=== PATIENT | female | born 2000 | race Caucasian/White ===

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

== ENCOUNTER → 2018-01-13 | Day surgery (SDC) | payer BC ==
[2017-12-27 13:55] VITALS: Ht 167 cm; Wt 59.1 kg
[~2018-01-13] VITALS: Ht 167 cm; Wt 59.1 kg
[~2018-01-13] MED LIST changes: +ATROPINE SULFATE 0.1 MG/ML 5ML SYR IV PRN; +BCPILLS PO; +BUPIVACAINE/EPINEPHRINE 0.5% MPF 1:200,000 30 ML VIAL ONE; +CEFAZOLIN 1000MG IV PUSH 7.5 ML IV SCH; +CEFAZOLIN SOD 1 GM VIAL ONE; +CETI10TA84 PO; +CHECK SCOPOLAMINE PATCH PLACEMENT SCH; -CHOL1000 PO; +CHOL20009 PO; +DEXAMETHASONE SOD INJ 4 MG/ML VIAL ONE; +EpHEDrine SULFATE 50MG/5ML SYR ONE; +EpHEDrine SULFATE INJ 50 MG/ML AMP IV PRN; +FENTANYL CITRATE INJ 50 MCG/1 ML 2 ML VIAL ONE; +HYDROmorphone INJ 0.5 MG/0.5 ML SYR IV PRN; +KETOROLAC TROMETHAMINE 30 MG/ML VIAL ONE; +LACTATED RINGER'S 1000ML 1,000 ML IV SCH; +LIDOCAINE HCL 1% 20 ML VIAL ONE; +LIDOCAINE HCL 2% 2 ML VIAL (20MG/ML) ONE; -METO25TA3 PO; +METO25TA4 PO; +MIDAZOLAM HCL 1 MG/ML 2ML VIAL ONE; +MoRPHine SULFATE 2 MG/ML CARP IV PRN; +MoRPHine SULFATE 4 MG/ML 1 ML CARP\\VIAL IV PRN; +ONDANSETRON INJ 2 MG/ML 2 ML VIAL IV PRN; +ONDANSETRON INJ 2 MG/ML 2 ML VIAL ONE; +OXYCODONE/ACETAMINOPHEN 5-325 TAB PO PRN; +PROMETHAZINE HCL INJ 12.5 MG in SODIUM CHLORIDE 0.9% 50ML 50 ML IV PRN; +PROMETHAZINE HCL INJ 25 MG/ML 1 ML VIAL ONE; +PROPOFOL IV EMULSION 10 MG/ML 20 ML VIAL IV ONE; +SCOPOLAMINE 1.5 MG TDSY TD ONE; +SCOPOLAMINE 1.5 MG TDSY TD SCH; +ZNT/150 PO
--- NOTE | 2018-01-13 07:56 | History & Physical Bridge - SC ---
H&P Re-Evaluation Bridge Note: I have examined the patient, reviewed the History & Physical and in the interval since the performance of the History & Physical I have noted the following changes of clinical significance: No changes noted
--- NOTE | 2018-01-13 10:36 | [facility] Post Operative Brief Note ---
Immediate Operative Summary Operative Date Jan 13, 2018. Pre-Operative Diagnosis Left Exertional Compartment Sydrome Post-Operative Diagnosis Same Procedure(s) Performed Left Lower Leg Four Compartment Release Surgeon Dr. Lowe [employer] Consultant Surgeon(s) Dr. Goncalves, Fellow Estimated Blood Loss 7ML Findings Consistent with Post-Op Diagnosis Fluids (cc crystalloids) 1500 Specimens None Drains None Anesthesia Type General Complication(s) none Disposition Disposition: Recovery Room / PACU (Stable)
--- NOTE | 2018-01-13 10:39 | Discharge Instructions-SurgCtr ---
Discharge Instructions Date of Service Jan 13, 2018. Visit Reason for Visit: Left Exertional Comparment Syndrome Discharge Discharge Diagnosis / Problem: Status post 4-compartment release Left lower leg Discharge Goals Goal(s): Decrease discomfort, Improve function, Increase independence Activity Recommendations Activity Limitations: per Instructions/Follow-up section May Resume Sexual Activity: when tolerated Shower/Bathe: may shower/bathe in 3 days Driving or Machine Use: Not while on Narcotics Weightbearing Status: Left weightbearing (as tolerated) Anesthesia . Post Anesthesia Instructions: If you have had General Anesthesia or IV Sedation: * Do not drive today. * Resume driving when surgeon permits. * Do not make important decisions or sign legal documents today. * Call surgeon for: 1. Temperature elevations greater than 101 degrees F. 2. Uncontrollable pain. 3. Excessive bleeding. 4. Persistent nausea and vomiting. 5. Medication intolerance (nausea, vomiting or rash). * For nausea and vomiting use only clear liquids such as: tea, soda, bouillon until nausea subsides, then gradually increase diet as tolerated. * If you have any concerns or questions, call your surgeon's office. If physician is unavailable and it is an emergency, call 911 or go to the nearest emergency room. . Instructions / Follow-Up Instructions / Follow-Up Dr. Lowe 01/25/2018 @ 13:00. Diet Recommendations Home Diet: resume previous diet Procedures Procedures Performed: Left Lower Leg Four Compartment Release Pending Studies Studies pending at discharge: no School Instructions Return To School: time frame (Within the next week) Medical Emergencies . Who to Call and When: Medical Emergencies: If at any time you feel your situation is an emergency, please call 911 immediately. . Non-Emergent Contact Non-Emergency issues call your: Surgeon Call Non-Emergent contact if: temperature is above 101.5, your pain is not controlled, wound has increased drainage, wound has increased redness . . "Provider Documentation" section prepared by Tyron Lowe. .
--- NOTE | 2018-01-13 10:41 | [facility] Operative Report ---
Operative Report Operative Date Jan 13, 2018. Pre-Operative Diagnosis Left Exertional Compartment Sydrome Post-Operative Diagnosis Same Procedure(s) Performed Left Lower Leg Four Compartment Release Surgeon Dr. Lowe [employer] Disc Jockey Surgeon(s) Dr. Goncalves, Fellow Estimated Blood Loss 7ML Findings SPN nerve constricted as it exited the septum. No Muscle herniation. 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 After a lengthy discussion regarding treatment options of conservative versus surgical intervention, the patient has elected to proceed with surgical intervention. The patient understands the risks of surgery, which include but are not limited to: bleeding, infection, re-operation, damage to nerves and arteries, continued pain, decreased level of activity, muscle herniation, and DVT. The patient understands all of these instructions and explanations, all of their questions have been satisfactorily addressed. The patient has elected to proceed with surgery and the informed consent was signed. Description of Procedure The patient was taken to the Operating Room and after general anesthetic was administered a multidisciplinary time-out was performed identifying my initials on the left limb as the correct and operative limb, the patient was placed in the supine position on the operating table. Prior to the incision being made, 2 grams of intravenous Ancef was given. The left lower leg was prepped and draped in the standard sterile fashion. The tibial crest and fibula were palpated and marked. The planned incision over the anterior and lateral compartments was approximately 7 cm in length was marked midway between the tibial crest and fibula centered approximately 12 cm from the distal tip of the fibula. The posterior deep and superficial compartments single incision technique was planned and a 10 cm incision, 2 cm posterior to the medial tibial crest was marked. The incisions were injected with a 50:50 mixture of 1% Lidocaine plain and 0.5% Marcaine with Epinephrine for a total of 10 cc. The planned incision was created exposing the anterior and lateral compartment fascia. The superficial peroneal nerve was identified as it crossed the intermuscular septum. It was carefully neurolysis within the wound and protected throughout. The fascia was incised longitudinally to expose the anterior and lateral compartments by the intermuscular septum. The subcutaneous tissue was bluntly dissected with long Silva scissors both in the proximal and distal direction as well as subfascially prior to incising the fascia. The superficial peroneal nerve was protected throughout. The anterior compartment was performed first with proximal fasciotomy directed toward the patella and distally away from the superficial peroneal nerve and toward the lateral aspect of the ankle. The lateral compartment was performed proximally directing towards the fibular head and distally toward the posterior distal fibula. The planned medial incision was created and carried down to the fascia. The saphenous vein and nerve were identified and protected throughout. The subcutaneous tissue was bluntly dissected with long Silva scissors both in the proximal and distal direction as well as sub-fascially prior to incising the fascia. The superficial posterior compartment was decompressed first from the anterior inferior to posterior superior. Then it was carried distally toward the medial malleolus. The posterior tibial tendon was identified and its compartment released distally and detaching the soleus bridge proximal off the tibia. There was good hemostasis. The wounds were copiously irrigated. The subcutaneous layer was closed with 3-0 Vicryl. The skin was closed with 4- 0 Monacryl in a running subcuticular standard fashion and covered with Dermabond. Steri Strips were placed over top after the Dermabond had dried, followed by 4x4's, ABD, sterile cast padding, and foot to thigh Wing bandage. The sponge and needle counts were correct. Post-op Instructions: Pain medicine prescription was given pre-operatively to be taken as needed. The patient will follow up with me in 10-15 days. The patient will progress her weight bearing as tolerated over the next 3 days to 2 weeks. The patient will start rehab in 3-5 days. I attest to the content of the Intraoperative Record and any orders documented therein. Any exceptions are noted below.
[2018-01-13] MEDS: FENTANYL CITRATE INJ 50 MCG/1 ML 2 ML VIAL IV PRN ×2 (11:13→11:18)
[2018-01-13 12:11] VITALS: TEMP 37.1
[2018-01-13 12:53] VITALS: BP 109/66; PULSE 69; O2SAT 99
--- NOTE | 2018-01-13 14:04 | Anesthesia Progress Nt - [facility] ---
Anesthesia Post Op Note Date & Time Jan 13, 2018 at 14:04 Vital Signs Pain Intensity: 2 Vital Signs Past 12 Hours Date Time Temp Pulse Resp B/P (MAP) Pulse Ox O2 Delivery O2 Flow Rate FiO2 01/13/18 12:53 69 16 109/66 (80) 99 Room Air 01/13/18 12:11 37.1 73 16 106/67 (80) 97 Room Air 01/13/18 11:56 36.7 72 16 119/64 98 Room Air 01/13/18 11:56 119/64 01/13/18 11:55 69 17 01/13/18 11:55 70 17 97 01/13/18 11:51 118/68 01/13/18 11:50 68 17 97 01/13/18 11:50 67 17 01/13/18 11:46 112/69 01/13/18 11:45 67 15 97 01/13/18 11:45 67 15 01/13/18 11:41 122/76 01/13/18 11:40 71 18 01/13/18 11:40 72 18 100 01/13/18 11:36 117/69 01/13/18 11:35 66 13 01/13/18 11:35 67 13 100 01/13/18 11:31 126/70 01/13/18 11:30 73 14 100 01/13/18 11:30 70 14 01/13/18 11:26 118/71 01/13/18 11:25 64 14 100 01/13/18 11:25 63 14 01/13/18 11:21 125/73 01/13/18 11:20 67 17 100 01/13/18 11:20 66 17 01/13/18 11:16 121/69 01/13/18 11:15 66 13 01/13/18 11:15 68 13 100 01/13/18 11:11 111/75 01/13/18 11:10 61 12 100 01/13/18 11:10 62 12 01/13/18 11:06 110/63 01/13/18 11:05 67 14 01/13/18 11:05 70 14 100 01/13/18 11:01 115/67 01/13/18 11:00 60 13 01/13/18 11:00 60 13 100 01/13/18 10:56 113/62 01/13/18 10:55 58 33 100 01/13/18 10:55 58 33 01/13/18 10:55 37.0 58 20 113/62 100 Mask 6 01/13/18 07:26 36.9 94 16 114/76 (89) 98 Room Air Notes Mental Status: alert / awake / arousable, participated in evaluation Pt Amnestic to Procedure: Yes Nausea / Vomiting: adequately controlled Pain: adequately controlled Airway Patency, RR, SpO2: stable & adequate BP & HR: stable & adequate Hydration State: stable & adequate Anesthetic Complications: no major complications apparent
== END | disposition home or self-care (01) ==
LOC: X.SURG 07:07
PROVIDERS: ATTEND Orthopaedic Surgery Sports Medicine
DX: M79.A22 Nontraumatic compartment syndrome of left lower extremity (principal); I10 Essential (primary) hypertension; I49.8 Other specified cardiac arrhythmias